=== PATIENT | female | born 1945 | race Caucasian/White ===

== ENCOUNTER 2017-04-03 05:39 | Day surgery (SDC) | payer OTHER ==
[~2017-04-03] VITALS: Ht 157.5 cm; Wt 67.1 kg
[~2017-04-03 05:39] MED LIST: ALLERGY RELIE15.8 ML BOTH NARES; ALLERGY SINUS-1 EACH PO; KEFLEX500 MG PO; METAXALL800 MG PO; NAPROSYN500 MG PO; NEXIUM20 MG PO; NEXIUM40 MG PO; PRED FORTE100 DROP/5 LEFT EYE; SINGULAIR10 MG PO; ZOCOR10 MG PO; ZOCOR20 MG PO
[2017-04-03 07:01] VITALS: BP 140/68
[2017-04-03 10:35] VITALS: BP 114/60
[2017-04-03 16:11] VITALS: BP 107/59
[2017-04-03 20:24] VITALS: BP 105/59
[2017-04-04 00:10] VITALS: BP 107/54
[2017-04-04 03:47] VITALS: BP 138/65
[2017-04-04 06:50] VITALS: BP 122/88
[2017-04-04 07:13] LABS: HEMATOCRIT 37.2 % (36.0-46.0); MCH 29.7 PG (29.0-34.0); MCHC 33.6 G/DL (30.0-36.0); MCV 88.4 FL (83-99); MEAN PLAT.VOLUME 10.9 uM^3 (9.5-12.4); PLATELET COUNT 263 K/uL (156-360); RBC DIS.WIDTH-CV 12.7 % (11.8-14.6); RBC DIS.WIDTH-SD 41.1 % (39-53); RED BLOOD COUNT 4.21 M/uL (3.80-5.20); WHITE BLOOD COUNT 15.4 K/uL (4.1-10.2)
[2017-04-04] MEDS ORDERED: PERCOCET 5/31 TABLET PO (09:09)
[2017-04-04] MEDS ORDERED: TORADOL10 MG PO (09:09)
== END 2017-04-04 09:59 | disposition home or self-care (01) ==
LOC: SDC 05:39 → 2SOUTH 09:17 → 2EAST 09:17 → SDC 13:29 → 2EAST 04-04 09:59
PROVIDERS: Obstetrics & Gynecology
DX: D25.9 Leiomyoma of uterus, unspecified (principal); N81.4 Uterovaginal prolapse, unspecified; N73.6 Female pelvic peritoneal adhesions (postinfective); N83.202 Unspecified ovarian cyst, left side; N83.201 Unspecified ovarian cyst, right side; M85.80 Other specified disorders of bone density and structure, unspecified site; K21.9 Gastro-esophageal reflux disease without esophagitis; E78.00 Pure hypercholesterolemia, unspecified; K58.9 Irritable bowel syndrome, unspecified; Z83.3 Family history of diabetes mellitus; Z80.3 Family history of malignant neoplasm of breast; Z80.52 Family history of malignant neoplasm of bladder; Z82.62 Family history of osteoporosis
CPT/HCPCS: 85027; 88307; G0378; J0330; J0690; J1100; J1170; J2250; J2270; J2405; J2765; J3010; J7120